=== PATIENT | male | born 1995 | race African-American/Black ===

== ENCOUNTER 2022-11-15 14:26 | Emergency (ER) | payer OTHER ==
--- NOTE | 2022-11-15 15:42 | XRAY Report ---
PROCEDURE: Abdomen Acute INDICATIONS: abd pain/poss obstruction TECHNIQUE: One view chest and two views of the abdomen were acquired. COMPARISON: None FINDINGS: Surgical changes and devices: None. Chest: Lungs are clear. Heart size is normal. No pleural effusions. No pneumoperitoneum. Abdomen: Bowel gas pattern is normal. No suspicious calcifications. Visualized solid organ contour s appear normal. Bones: No suspicious bony lesions. IMPRESSION: No obstruction. Reviewed by: Hillary Petersen MD on 11/15/2022 3:40 PM PST Approved by: Hillary Petersen MD on 11/15/2022 3:40 PM PST Station ID: [id number]
[2022-11-15 16:35] VITALS: BP 138/75
--- NOTE | 2022-11-15 16:40 | ED Physician Documentation ---
PD HPI ABD PAIN - Stated complaint Stated Complaint: STOMACH PX - Chief complaint Chief Complaint: Abd Pain - History obtained from History obtained from: Patient - Additional information Additional information: The patient comes to the emergency department with chief complaint of constipation. He states that he took some narcotic analgesics 3 days ago for some thumb pain and that since then, he has not been able to have a bowel movement. He states he just feels "backed up", and today he had some nausea but did not vomit. He has not tried any stool softeners or any other laxative product. He has some generalized abdominal discomfort but no focal pain. No fevers or chills. He does not feel ill in any other way. PD PAST MEDICAL HISTORY - Present Medications Home Medications: Ambulatory Orders Medication Instructions Recorded Confirmed Magnesium Citrate 148 ml PO Q12H PRN #296 ml 11/15/22 - Allergies Allergies/Adverse Reactions: Allergies Allergy/AdvReac Type Severity Reaction Status Date / Time No Known Drug Allergies Allergy Verified 11/15/22 15:10 PD ED PE NORMAL - Vitals Vital signs reviewed: Yes - General General: Alert and oriented X 3, No acute distress, Well developed/nourished - HEENT HEENT: Atraumatic, PERRL, EOMI, Moist mucous membranes - Neck Neck: Supple, no meningeal sign - Cardiac Cardiac: RRR, No murmur, Strong equal pulses - Respiratory Respiratory: No respiratory distress, Clear bilaterally - Abdomen Abdomen: Soft, Non distended, Other (Generalized tenderness, mild, no rebound or guarding.) - Derm Derm: Normal color, Warm and dry, No rash - Extremities Extremities: No deformity, No edema - Neuro Neuro: Alert and oriented X 3 - Psych Psych: Normal mood, Normal affect Results - Vitals Vitals: Vital Signs - 24 hr 11/15/22 11/15/22 15:04 16:35 Temperature 36.1 C L Heart Rate 68 70 Respiratory 16 18 Rate Blood Pressure 126/72 138/75 H O2 Saturation 100 100 Oxygen O2 Source Room air - Rads (name of study) Acute abdominal x-ray series Radiology: Final report received, See rad report (Constipation; normal Bowel gas pattern) PD Medical Decision Making - ED course Complexity details: reviewed results, re-evaluated patient, considered differential, d/w patient ED course: The patient had a fairly benign abdominal exam and his x-ray series was unremarkable. The patient did not clinically have a bowel obstruction. His laboratory studies in clinic had been unremarkable and with a negative x-ray her e he felt he was stable for discharge home. We have discussed symptomatic management at home, and I have prescribed a laxative for him. We have discussed the usual indications for return Departure - Departure Disposition: Home, Self Care Clinical Impression: Constipation Qualifiers: Constipation type: slow transit constipation Qualified Code(s): K59.01 - Slow transit constipation Condition: Stable Instructions: ED Constipation Prescriptions: Magnesium Citrate 148 ml PO Q12H PRN #296 ml PRN Reason: Constipation Comments: Your prescription for a laxative has been electronically transmitted to the [facility] pharmacy in [place] at your request. Please take half of the bottle either tonight or tomorrow morning, and if in 12 hours you have not had a bowel movement, please take the other half of the bottle. You may want to consider taking a stool softener or laxative concurrently if you need to be on a narcotic pain medication in the future to avoid becoming constipated.
== END 2022-11-15 16:51 | disposition home or self-care (01) ==
LOC: ED 14:26
DX: K59.01 Slow transit constipation (principal)
CPT/HCPCS: 99283

== ENCOUNTER 2023-05-29 19:09 | Emergency (ER) | payer OTHER ==
[2023-05-29 19:20] VITALS: BP 140/75; O2SAT 99
[2023-05-29] MEDS ORDERED: AMOX/CLAV 875 MG/125 MG TABLET PO STA (19:23)
[2023-05-29] MEDS ORDERED: HYDROcod/ACET 5/325 Prepack 4 PO STA (19:23)
--- NOTE | 2023-05-29 19:26 | ED Physician Documentation ---
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 His was also sick but not quite as bad as him. He checked himself for COVID this morning and it was negative. He did travel to [place] recently. PD PAST MEDICAL HISTORY - Present Medications Home Medications: Ambulatory Orders Medication Instructions Recorded Confirmed Magnesium Citrate 148 ml PO Q12H PRN #296 ml 11/15/22 Guaifenesin/Pseudoephedrne HCl 1 each PO BID PRN #20 tab 05/29/23 [Mucinex D ER 600-60 mg Tablet] HYDROcod/ACETAM 5/325 [[place] 5/325] 1 - 2 tab PO Q6H PRN #10 tablet 05/29/23 Ibuprofen [Motrin] 800 mg PO Q8H PRN #14 tablet 05/29/23 - Allergies Allergies/Adverse Reactions: Allergies Allergy/AdvReac Type Severity Reaction Status Date / Time No Known Drug Allergies Allergy Verified 05/29/23 19:12 PD ED PE NORMAL - Vitals Vital signs reviewed: Yes - General General: Alert and oriented X 3, No acute distress - HEENT HEENT: Ears normal, Pharynx benign, Other (Severe bilateral maxillary sinus tenderness) - Neck Neck: Supple, no meningeal sign, No bony TTP - Cardiac Cardiac: RRR, No murmur - Respiratory Respiratory: No respiratory distress, Clear bilaterally - Abdomen Abdomen: Non tender - Neuro Neuro: Alert and oriented X 3, Normal speech Results - Vitals Vitals: Vital Signs - 24 hr 05/29/23 19:12 Temperature 36.8 C Heart Rate 81 Respiratory 18 Rate Blood Pressure 140/75 H O2 Saturation 99 Oxygen O2 Source Room air - Labs Labs: Laboratory Tests 05/29/23 19:23 Nasal Adenovirus (PCR) NOT DETECTED Nasal B. parapertussis DNA (PCR) NOT DETECTED Nasal Coronavir 229E PCR NOT DETECTED Nasal Coronavir HKU1 PCR NOT DETECTED Nasal Coronavir NL63 PCR NOT DETECTED Nasal Coronavir OC43 PCR NOT DETECTED Nasal Enterovir/Rhinovir PCR DETECTED A Nasal Influenza B PCR NOT DETECTED Nasal Influenza A PCR NOT DETECTED Nasal Parainfluen 1 PCR NOT DETECTED Nasal Parainfluen 2 PCR NOT DETECTED Nasal Parainfluen 3 PCR NOT DETECTED Nasal Parainfluen 4 PCR NOT DETECTED Nasal RSV (PCR) NOT DETECTED Nasal B.pertussis DNA PCR NOT DETECTED Nasal C.pneumoniae (PCR) NOT DETECTED Wilbert Human Metapneumo PCR NOT DETECTED Nasal M.pneumoniae (PCR) NOT DETECTED Nasal SARS-CoV-2 (PCR) NOT DETECTED PD Medical Decision Making - ED course ED course: 27-year-old gentleman with what sounds abdominal oblique a viral syndrome but also evidence of sinusitis. We will treat with Augmentin. We will repeat COVID testing. For Vicodin prepack to go. Departure - Departure Disposition: 01 Home, Self Care Clinical Impression: Sinusitis, Viral syndrome Condition: Good Instructions: ED Sinusitis Abx Tx, ED Viral Syndrome Prescriptions: Ibuprofen [Motrin] 800 mg PO Q8H PRN #14 tablet PRN Reason: PAIN &/OR FEVER Guaifenesin/Pseudoephedrne HCl [Mucinex D ER 600-60 mg Tablet] 1 each PO BID PRN #20 tab PRN Reason: congestion HYDROcod/ACETAM 5/325 [[place] 5/325] 1 - 2 tab PO Q6H PRN #10 tablet PRN Reason: Pain Comments: You have a Covid test pending. You need to self quarantine until the result is done and negative. Do not leave your house. Do not get near anybody. The results should be done in Under 6 hours. We will call with a positive result, the fastest way to get a negative result for confirmation though is to go to the hospital website at [email or web address], click on the my [facility] tab and sign up for the patient portal. I sent your prescription electronically to [email or web address] in [place]. I am prescribing a short course of narcotic pain medication for you. These are potentially dangerous and addictive medications that should be used carefully. These medications may constipate you. Take an [id number] stool softener (docusate) twice daily with plenty of water while taking these medications. If you go 24 hours without a bowel movement, take [id number] miralax, per package instructions. Do not drink or drive while taking these medications. If you received narcotic or sedating medications while in the emergency department, do not drive for 24 hours. Store this medication in a safe, secure place and out of reach of children. It is a violation of federal law to give or sell this medication to another person or to use in a manner other than prescribed. The ED will not refill narcotic prescriptions, including prescriptions lost or stolen. To dispose of unwanted medications: 1. [facility] provides a drop box for medication in pill form only (no liquids) 8:00 am to 4:30 p.m. Monday-Monday in the lobby of the [facility], [address] [place] [address]. Empty pills into ziplock bag before disposal. Call [phone] for information. 2.[facility] is a free service available to all [facility] residents. Go to [email or web address] Note that many narcotic pain relievers also contain Tylenol/acetaminophen. Please ensure that your total dose of acetaminophen from all sources does not exceed 3 g (3000 mg) per day. Forms: Activity restrictions Discharge Date/Time: 05/29/23 19:45
[2023-05-29 20:25] LABS: B. PARAPERTUSSIS- RESP PCR PAN NOT DETECTED; B. PERTUSSIS- RESP PCR PANEL NOT DETECTED; C. PNEUMONIAE- RESP PCR PANEL NOT DETECTED; CORONAVIRUS 229E-RESP PCR NOT DETECTED; CORONAVIRUS HKU1-RESP PCR NOT DETECTED; CORONAVIRUS NL63-RESP PCR NOT DETECTED; CORONAVIRUS OC43-RESP PCR NOT DETECTED; HUMAN METAPNEUMOVIRUS NOT DETECTED; INFLUENZA A- RESP PCR PANEL NOT DETECTED; INFLUENZA B - RESP PCR PANEL NOT DETECTED; M. PNEUMONIAE- RESP PCR PANEL NOT DETECTED; PARAINFLUENZA VIRUS 1 NOT DETECTED; PARAINFLUENZA VIRUS 2 NOT DETECTED; PARAINFLUENZA VIRUS 3 NOT DETECTED; PARAINFLUENZA VIRUS 4 NOT DETECTED; RHINOVIRUS/ENTEROVIRUS DETECTED; RSV- RESP PCR PANEL NOT DETECTED; SARS-CoV-2 -RESP PCR PANEL NOT DETECTED
== END 2023-05-29 19:45 | disposition home or self-care (01) ==
LOC: ED 19:09
DX: J32.9 Chronic sinusitis, unspecified (principal); B34.9 Viral infection, unspecified; Z20.822 Contact with and (suspected) exposure to COVID-19
CPT/HCPCS: 87633; 99283; A9270